=== PATIENT | male | born 1955 | race Two or more races ===

== ENCOUNTER 2024-01-10 06:54 | Day surgery (SDC) | payer OTHER ==
[~2024-01-10 06:54] MED LIST: DIOVAN160 M1 PO; GABAPENTIN300 MG PO; HYOSCYAMINE0.125 M1 SL; LIPITOR40 M1 PO; NORVASC2.5 M1 PO; TRAM1TAB98 PO; VAZALORE81 MG PO
[2024-01-10] MEDS ORDERED: LIDOCAINE HCL 1%/EPINEPHRINE 20ML VIAL IJ ONE (14:45)
[2024-01-10] MEDS ORDERED: BUPIVACAINE HCL 30 ML VIAL IJ ONE (14:45)
[2024-01-10] MEDS ORDERED: HEPARIN SODIUM,PORCINE 500 UNITS/5 ML VIAL IV ONE (14:45)
[2024-01-10] MEDS ORDERED: CEFAZOLIN SODIUM 1,000 MG VIAL IV ONE (14:45)
[2024-01-10] MEDS ORDERED: TRAM1TAB98 PO (14:50)
== END 2024-01-10 16:55 | disposition home or self-care (01) ==
LOC: CIR.AMB 06:54
PROVIDERS: ATTEND Surgery
DX: C18.7 Malignant neoplasm of sigmoid colon (principal); R59.0 Localized enlarged lymph nodes; I10 Essential (primary) hypertension; I25.10 Atherosclerotic heart disease of native coronary artery without angina pectoris
CPT/HCPCS: 36561; C1751

== ENCOUNTER 2024-01-26 17:50 | Emergency (ER) | payer OTHER ==
[~2024-01-26] VITALS: Ht 162.6 cm; Wt 75.7 kg
[2024-01-26] MEDS ORDERED: FUROsemide 40 MG/4 ML VIAL IV ONE (18:15)
[2024-01-26] MEDS ORDERED: ENALAPRILAT DIHYDRATE 2.5 MG/2 ML VIAL IV ONE (18:15)
[2024-01-26] MEDS ORDERED: CLONIDINE HCL 0.1 MG TABLET PO ONE ×2 (18:15→18:19)
[2024-01-26] MEDS ORDERED: ENALAPRILAT DIHYDRATE 1.25 MG/ML VIAL IV ONE (18:19)
[2024-01-26] MEDS ORDERED: FUROsemide 40 MG/4 ML VIAL ONE (18:19)
[2024-01-26 18:44] LABS: HEMATOCRIT 45.8 % (39.0-48.0); HEMOGLOBIN 15.7 g/dL (13-16.00); MEAN CELL VOLUME 92.7 fL (80.0-100.00); MEAN CORPUSCULAR HEMOGLOBIN 31.9 pg (27.00-32.0); MEAN CORPUSCULAR HGB CONC 34.4 g/dl (32.0-36.0); PLATELET COUNT 208 K/uL (150-450); RED BLOOD COUNT 4.94 M/uL (4.00-6.00); RED CELL DISTRIBUTION WIDTH 13.4 % (11.5-14.5)
[2024-01-26 19:08] LABS: ALBUMIN 3.8 gm/dL (3.4-5.0); BILIRUBIN TOTAL 0.35 mg/dL (0.3-1.2); CALCIUM 9.2 mg/dL (8.5-10.1); CREATININE SERUM 0.87 mg/dL (0.70-1.30); GFR 87.52; POTASSIUM 3.54 mEq/L (3.5-5.1); TOTAL PROTEIN 7.8 gm/dL (6.4-8.2)
[2024-01-26 19:16] LABS: URINE APPEARANCE Clear; URINE BILIRRUBIN Negative (NEGATIVE); URINE BLOOD Moderate; URINE COLOR Yellow; URINE GLUCOSE Negative (NEGATIVE); URINE LEUKOCYTE Negative; URINE NITRATE Negative; URINE PROTEIN 30 (NEGATIVE); URINE UROBILINOGEN 0.2 E.U./dl
[2024-01-26 19:19] LABS: URINE BACTERIA 13.8 uL (0.0-1933); URINE EPITHELIAL CELLS 2.3 uL (0.0-38.8); URINE RBC 136.8 uL (0.0-20.8); URINE WBC 13.7 uL (0.0-23.2)
== END 2024-01-26 20:38 | disposition home or self-care (01) ==
LOC: ER 17:51
PROVIDERS: General Practice
DX: I16.9 Hypertensive crisis, unspecified (principal); I10 Essential (primary) hypertension; C18.9 Malignant neoplasm of colon, unspecified; Z20.822 Contact with and (suspected) exposure to COVID-19
CPT/HCPCS: 36415; 93005; 96365; 99283; J1940; J3490